=== PATIENT | female | born 1995 | race Caucasian/White ===

== ENCOUNTER → 2021-01-07 | Outpatient (CLI) | payer OTHER ==
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
== END | disposition home or self-care (01) ==
LOC: RADXRMAIN 15:52
PROVIDERS: ATTEND Chiropractor
DX: M54.5 Low back pain (principal); V89.2XXA Person injured in unspecified motor-vehicle accident, traffic, initial encounter
CPT/HCPCS: 72100

== ENCOUNTER 2021-06-10 10:40 | Emergency (ER) | payer BC ==
[2021-06-10 11:15] VITALS: BP 125/81; PULSE 73; RESP 16; TEMP 97.9
[2021-06-10] MEDS ORDERED: ACETAMINOPHEN TAB 500 MG TAB PO STA (11:39)
--- NOTE | 2021-06-10 12:38 | CT ---
EXAMINATION TYPE: CT brain kyle wo con DATE OF EXAM: 06/10/2021 COMPARISON: None HISTORY: 26-year-old female Fall/head injury/neck pain CT DLP: 1295.2 mGycm Automated exposure control for dose reduction was used. Technique: Examination of the head was done in axial plane without intravenous contrast. Coronal and sagittal reconstructions performed. CT of the cervical spine was obtained in axial plane without intravenous injection of contrast mater ial. Coronal and sagittal reformatted images were obtained from the axial views for evaluation of f ractures, spinal alignment and canal. FINDINGS: Head: There is no evidence of acute intracranial hemorrhage, acute ischemic changes, mass, mass-effect, or extra-axial fluid collection. There is no effacement of cerebral sulci or basal subarachnoid cister ns. There is no hydrocephalus. Asymmetrically smaller left lateral ventricle likely developmental v ariation. There is no midline shift. Pacheco-white matter distinction is preserved. Mild lobulated mucosal thickening bilateral maxillary sinuses. Mastoid air cells are well pneumatized . Orbits and globes are intact. No calvarial fracture. There is mild scalp hematoma along the posterior superior midline. No underlying calvarial fracture. Cervical spine: Some degenerative change anteriorly at the anterior arch of C1 and the basion. 8 mm bone island left base of the occipital condyle. Mild degenerative disc disease lower cervical spine with some anterior endplate spondylosis. Assessme nt of the spinal canal limited from C6-C7 and below due to artifact from patient's shoulders. Mild un covertebral joint arthropathy lower cervical spine. Alignment is maintained. No acute fracture seen of the cervical spine. 1.1 cm soft tissue density nodule in the subcutaneous adipose layer of the right paramedian upper stephanie k, axial image 73, suspect a prominent reactive lymph node incidentally seen. This can be followed cl inically. Sagittal and coronal reformatted images confirm above findings. COMBINED IMPRESSION: 1. Mild posterior scalp contusion. No acute intracranial abnormality seen. 2. No acute fracture or malalignment of the cervical spine. Mild spondylotic change.
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
[2021-06-10] MEDS ORDERED: KETOROLAC 15 MG/ML 1 ML VIAL IM STA (13:27)
== END 2021-06-10 13:53 | disposition home or self-care (01) ==
LOC: EC 10:40
DX: S06.0X0A Concussion without loss of consciousness, initial encounter (principal); F12.90 Cannabis use, unspecified, uncomplicated; W01.10XA Fall on same level from slipping, tripping and stumbling with subsequent striking against unspecified object, initial encounter
CPT/HCPCS: 99283; 96372; 72125; 70450; J1885

== ENCOUNTER 2022-04-28 18:34 | Emergency (ER) | payer BC, OTHER ==
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
--- NOTE | 2022-04-28 22:19 | CT ---
EXAMINATION TYPE: CT chest wo con DATE OF EXAM: 04/28/2022 COMPARISON: None HISTORY: Chest pain CT DLP: 464.3 mGycm. Automated Exposure Control for Dose Reduction was Utilized. TECHNIQUE: CT scan of the thorax is performed without IV contrast. FINDINGS: LUNGS: The airways are unremarkable. The lungs are clear. PLEURAL SPACES: Negative. MEDIASTINUM: There are no visualized coronary calcifications or cardiomegaly. No pericardial effusion . No adenopathy or mass. Thyroid and esophagus are unremarkable. SKELETAL STRUCTURES: No focal findings. EXTRATHORACIC SOFT TISSUES: No acute findings. IMPRESSION: No acute process.
--- NOTE | 2022-04-28 22:20 | CT ---
EXAMINATION TYPE: CT thoracic spine wo con DATE OF EXAM: 04/28/2022 COMPARISON: None HISTORY: Chest pain and T-spine pain. CT DLP: 464.3 mGycm Automated exposure control for dose reduction was used. Images obtained from T1 to T12 with no contrast. The thoracic vertebrae have normal alignment. Disc spaces are fairly normal. No compression fracture. No paraspinal mass. No evidence of focal bone destruction. The posterior elements are intact. [facility] ior ribs appear intact. IMPRESSION: Negative CT scan of the thoracic spine. No fracture.
[2022-04-28] MEDS ORDERED: DEXAMETHASONE SOD PHOSPHATE 10 MG/ML 1 ML VIAL IVP STA (22:42)
[2022-04-28] MEDS ORDERED: KETOROLAC 15 MG/ML 1 ML VIAL IVP STA (22:42)
[2022-04-28] MEDS ORDERED: SODIUM CHLORIDE 0.9% 1,000 ML IV STA (22:42)
[2022-04-28 23:32] VITALS: BP 119/68; PULSE 98; RESP 17; TEMP 99.2
[2022-04-28 23:38] LABS: Basophils % (A) 0 %; Eosinophils % (A) 0 %; HCT 37.5 % (34.0-46.0); HGB 13.5 gm/dL (11.4-16.0); Lymphocytes # (A) 1.7 k/uL (1.0-4.8); Lymphocytes % (A) 12 %; MCH 30.9 pg (25.0-35.0); MCHC 35.9 g/dL (31.0-37.0); MCV 85.9 fL (80.0-100.0); Mean Platelet Volume 8.6; Monocytes # (A) 0.4 k/uL (0-1.0); Monocytes % (A) 3 %; Neutrophils # (A) 11.9 k/uL (1.3-7.7); Neutrophils % (A) 84 %; Platelet Count 329 k/uL (150-450); RBC 4.36 m/uL (3.80-5.40); RDW 12.7 % (11.5-15.5); WBC 14.2 k/uL (3.8-10.6)
[2022-04-28 23:51] LABS: ALT 23 U/L (4-34); AST 23 U/L (14-36); African American GFR (CKD) >90 (>60 ml/min/1.73 sqM); Albumin 4.5 g/dL (3.5-5.0); Alkaline Phosphatase 52 U/L (38-126); Amylase 53 U/L (30-110); Anion Gap 9 mmol/L; Blood Urea Nitrogen 13 mg/dL (7-17); C Reactive Protein <0.5 mg/dL (<1.0); Calcium 9.3 mg/dL (8.4-10.2); Carbon Dioxide 22 mmol/L (22-30); Chloride 107 mmol/L (98-107); Glucose 107 mg/dL (74-99); Lipase 80 U/L (23-300); Non-African American GFR(CKD) >90 (>60 ml/min/1.73 sqM); Potassium 4.3 mmol/L (3.5-5.1); Sodium 138 mmol/L (137-145); Total Bilirubin 0.5 mg/dL (0.2-1.3); Total Protein 7.1 g/dL (6.3-8.2)
[2022-04-28 23:55] LABS: Appearance,Urine Clear (Clear); Bilirubin,Urine Negative (Negative); Blood,Urine Negative (Negative); Color,Urine Colorless; Glucose,Urine (UA) Negative (Negative); Ketones,Urine Negative (Negative); Leukocyte Esterase,Urine Negative (Negative); Nitrite,Urine Negative (Negative); Protein,Urine Negative (Negative); Specific Gravity,Urine 1.007 (1.001-1.035); Urobilinogen,Urine <2.0 mg/dL (<2.0)
[2022-04-29 00:14] LABS: Amphetamine Screen,Urine Not Detected (NotDetected); Barbiturate Screen,Urine Not Detected (NotDetected); Benzodiazepines Screen,Urine Not Detected (NotDetected); Cocaine Screen,Urine Not Detected (NotDetected); Methadone Screen, Urine Not Detected (NotDetected); Opiate Screen,Urine Not Detected (NotDetected); Oxycodone Screen, Urine Not Detected (NotDetected); Phencyclidine Screen,Urine Not Detected (NotDetected); Tricyclic Antidepressant,Urine Not Detected (NotDetected); Urn Cannabinoid Scrn Detected (NotDetected)
== END 2022-04-29 00:45 | disposition home or self-care (01) ==
LOC: EC 18:34
DX: M54.6 Pain in thoracic spine (principal); F12.90 Cannabis use, unspecified, uncomplicated
CPT/HCPCS: 36415; 80053; 82150; 83690; 85025; 86140; 81003; 81025; 80306; 72128; 71250; 99284; 96374; 96375; 96361; J1100; J1885